=== PATIENT | female | born 1995 | race African-American/Black ===

== ENCOUNTER 2017-03-29 16:01 | Observation (INO) | payer SELFPAY ==
[2017-03-29] MEDS ORDERED: NORMAL SALINE 1,000 ML IV ONE ×2 (16:05→17:30)
[2017-03-29 16:22] LABS: Hematocrit 42.3 % (37.0-47.0); Hemoglobin 13.7 gm/dL (12.5-16.0); Mean Cell Volume 93.4 fl (78-100); Mean Corpuscular Hemoglobin 30.2 pg (27-31); Mean Corpuscular Hgb Conc 32.4 g/dl (32-36); Mean Platelet Volume 10.7 fl (6.0-9.5); Neutrophil # 9.2 K/mm3 (1.3-6.0); Neutrophil % 82.7 % (42-75.0); Platelet Count 368 K/mm3 (150-450); Red Blood Count 4.53 M/mm3 (4.2-5.4); Red Cell Distribution Width 14.4 % (11.5-14.0); White Blood Count 11.1 K/mm3 (4.0-10.5)
[2017-03-29] MEDS ORDERED: ONDANSETRON HCL/PF 2 MG/ML VIAL ONE (16:27)
[2017-03-29] MEDS ORDERED: ONDANSETRON HCL/PF 2 MG/ML VIAL IV ONE (16:30)
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
[2017-03-29 16:36] LABS: ALT 25 U/L (19-67); AST 31 U/L (0-48); Albumin * 5.1 gm/dl (3.4-5.0); Alkaline Phosphatase * 90 U/L (50-170); Anion Gap 25.2 mmol/L (6.8-13.8); BUN/Creatinine Ratio 14.5 (9.0-21.6); Bilirubin, Total 0.1 mg/dL (0.0-1.1); Blood Urea Nitrogen 12 mg/dL (3-23); Ca. Corrected For Albumin 7.9 mg/dL (8.4-10.2); Calcium * 9.1 mg/dL (7.9-10.9); Carbon Dioxide 18.7 mmol/L (24-32.6); Chloride 103 mmol/L (97-106); Glucose * 127 mg/dL (70-110); Potassium 3.9 mmol/L (3.4-4.6); Salicylate Less than 2.8 mg/dL (2.8-20.0); Sodium 143 mmol/L (132-142); Total Protein 9.3 gm/dL (6.2-8.2)
[2017-03-29 17:06] LABS: Urine Bilirubin Negative (NEGATIVE); Urine Blood 25 /ul (NEGATIVE); Urine Ketone 5 mg/dL (NEGATIVE); Urine Nitrite Negative (NEGATIVE); Urine Protein 15 mg/dL (NEGATIVE); Urine Urobilinogen Normal (NORMAL)
[2017-03-29 17:19] LABS: Cocaine Ur Negative (NEGATIVE); Urine Barbiturate Negative (NEGATIVE); Urine Benzodiazepines Negative (NEGATIVE); Urine Opiates Negative (NEGATIVE); Urine PCP Negative (NEGATIVE)
[2017-03-29 17:24] LABS: Urine THC Positive (NEGATIVE)
[2017-03-29 17:35] LABS: Urine Appearance Clear; Urine Bacteria 3+; Urine Color Yellow; Urine RBC 0-5 /hpf (0-5); Urine WBC 0-5 /hpf (0-5)
[2017-03-29] MEDS ORDERED: PANTOPRAZOLE SODIUM 40 MG/100 ML PIGGYBACK IV ONE (18:40)
[2017-03-29] MEDS ORDERED: PANTOPRAZOLE SODIUM 40 MG in NORMAL SALINE 100 ML IV ONE (18:44)
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
[2017-03-29] MEDS: ONDANSETRON HCL/PF 2 MG/ML VIAL IV PRN (20:40)
[2017-03-30] MEDS: ONDANSETRON HCL/PF 2 MG/ML VIAL IV PRN ×2 (01:03→07:12)
[2017-03-30] MEDS: NORMAL SALINE 1,000 ML IV PRN ×2 (01:05→09:52)
[2017-03-30 06:17] LABS: Albumin * 3.9 gm/dl (3.4-5.0); Anion Gap 17.2 mmol/L (6.8-13.8); Bilirubin, Total 0.3 mg/dL (0.0-1.1); Ca. Corrected For Albumin 7.6 mg/dL (8.4-10.2); Calcium * 7.8 mg/dL (7.9-10.9); Carbon Dioxide 21.2 mmol/L (24-32.6); Potassium 3.4 mmol/L (3.4-4.6); Total Protein 7.3 gm/dL (6.2-8.2)
[2017-03-30] MEDS: POTASSIUM CHLORIDE 20 MEQ TABLET.SA PO SCH ×2 (12:51→16:26)
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
[2017-03-30 18:31] VITALS: BP 128/81
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
== END 2017-03-30 19:10 | disposition home or self-care (01) ==
LOC: EDBD → ER 16:01 → SCU 18:32 → INTOOBSV 18:32
PROVIDERS: ADMIT Internal Medicine; ATTEND Internal Medicine
PROC: 0T9B7ZZ Drainage of Bladder, Via Natural or Artificial Opening (ICD-10-PCS; principal; 2017-03-29)
DX: T39.312A Poisoning by propionic acid derivatives, intentional self-harm, initial encounter (principal); E87.4 Mixed disorder of acid-base balance; F10.129 Alcohol abuse with intoxication, unspecified; F12.90 Cannabis use, unspecified, uncomplicated; F43.10 Post-traumatic stress disorder, unspecified; F31.81 Bipolar II disorder
CPT/HCPCS: 36415; 51701; 80053; 80307; 81001; 82803; 83735; 84100; 84703; 85025; 93005; 96365; 96375; 96376; 99291; G0378; G0480; G0481; J2405